=== PATIENT | female | born 1975 | race African-American/Black ===

== ENCOUNTER 2024-01-24 05:51 | Day surgery (SDC) | payer OTHER, SELFPAY ==
[2024-01-13 07:39] VITALS: BMI 27.3
[2024-01-13 09:36] LABS: % Basophils 1.1 % (0-2); % Eosinophils 2.9 % (0-6); % Immature Granulocytes 0.2 % (0-0.5); % Lymphocytes 25.7 % (20.5-51.1); % Monocytes 11.6 % (1.7-9.3); % Neutrophils 58.5 % (42.2-75.2); Absolute Basophils 0.1 10^3/uL (0-0.2); Absolute Eosinophils 0.1 10^3/uL (0-0.7); Absolute Lymphocytes 1.2 10^3/uL (1.2-3.4); Absolute Monocytes 0.5 10^3/uL (0.1-0.6); Absolute Neutrophils 2.7 10^3/uL (1.4-6.5); Hematocrit 39.2 % (37.0-47.0); Hemoglobin 12.4 g/dL (12.0-16.0); Mean Corp Hgb Conc. 31.6 g/dL (33.0-37.0); Mean Corpuscular Hgb 26.2 pg (27.0-31.0); Mean Corpuscular Volume 82.9 fL (81.0-99.0); Mean Platelet Volume 11.3 fL (7.4-10.4); Nucleated Red Blood Cells % 0 %; Platelet Count 270 10^3/uL (130-400); Red Blood Cell Count 4.73 10^6/uL (4.20-5.40); Red Cell Dist. Width 14.4 % (11.5-14.5); White Blood Cell Count 4.6 10^3/uL (4.8-10.8)
[2024-01-13 10:10] LABS: Blood Urea Nitrogen 18 mg/dl (7-17); Calcium 10.1 mg/dl (8.4-10.2); Carbon Dioxide 22 mmol/L (22-30); Chloride 105 mmol/L (98-107); Estimated Creatinine Clearance 75 ml/min; Glucose 94 mg/dl (70-99); Potassium 4.3 mmol/L (3.5-5.1); Sodium 139 mmol/L (135-145); eGFR > 60.00
[2024-01-13 10:26] LABS: Beta HCG Quantitative < 2.39 mIU/ml
[2024-01-24] VITALS (10 sets, daily range): BP systolic 102–129; BP diastolic 71–84; BMI 27.3
[2024-01-24] MEDS: NORMOSOL-R 1000 IV (06:17)
[2024-01-24] MEDS: TYLENOL 1000 MG PO (06:17)
--- NOTE | 2024-01-24 08:34 | W.SUR.PREOP ---
Pre-Operative Surgical Note
-
I have examined this patient prior to the performance of the scheduled procedure.
The patient's condition is unchanged from the time of the current History and
Physical and the patient is able to undergo the scheduled procedure.
Jeannie was seen by me preoperatively. No changes to H&P.
--- NOTE | 2024-01-24 08:34 | W.IMMPOSTOP ---
Surgical Immed Post Op Note
-
Primary Surgeon: Teresa Carey DO
Assisting Surgeon: none
Pre-op Diagnosis: Menorrhagia, abnormal uterine bleeding
Post-op Diagnosis: same, endometrial polyp, submucosal fibroid
Procedure Performed: Hysterocopy D&C myosure resection of polyp and submucosal fibroid
Anesthesia Type: general Dr. Gleason
Specimen / Cultures: 1. endocervical curettings 2. endometrial curettings; fragments resected polyp and fibroid in sock
Estimated Blood Loss: 2 ml
Complications: none
Fluid deficit: 60m NSS
Operative Findings: Endometrial polyp noted, submucosal fibroid noted. Bilateral tubal ostia seen.
Stable to recovery.
SPonge counts correct times 2.
== END 2024-01-24 09:40 | disposition home or self-care (01) ==
LOC: SDS 05:51
PROVIDERS: ATTENDING PHYSICIAN Obstetrics & Gynecology; FAMILY PHYSICIAN Family Medicine
DX: N84.0 Polyp of corpus uteri (principal); N92.0 Excessive and frequent menstruation with regular cycle
CPT/HCPCS: 58558; 88305; 36415; 80048; 84702; 85025

== ENCOUNTER → 2024-04-18 12:53 | Outpatient (REF) | payer OTHER, SELFPAY | LOC: HWRAD 12:53 | PROVIDERS: ATTENDING PHYSICIAN Obstetrics & Gynecology; FAMILY PHYSICIAN Family Medicine | DX: N92.1 Excessive and frequent menstruation with irregular cycle (principal); D25.9 Leiomyoma of uterus, unspecified | CPT/HCPCS: 76830; 76856 ==

== ENCOUNTER → 2024-06-01 07:37 | Outpatient (REF) | payer OTHER, SELFPAY | LOC: WDC 07:37 | PROVIDERS: ATTENDING PHYSICIAN Obstetrics & Gynecology; FAMILY PHYSICIAN Family Medicine | DX: Z12.31 Encounter for screening mammogram for malignant neoplasm of breast (principal) | CPT/HCPCS: 77063; 77067 ==

== ENCOUNTER → 2024-06-08 17:44 | Outpatient (REF) | payer OTHER, SELFPAY | LOC: MRI 17:44 | PROVIDERS: ATTENDING PHYSICIAN Obstetrics & Gynecology; FAMILY PHYSICIAN Family Medicine; PRIMARYCARE PHYSICIAN Family Medicine | DX: N92.1 Excessive and frequent menstruation with irregular cycle (principal); D25.9 Leiomyoma of uterus, unspecified | CPT/HCPCS: 72197; A9575 ==

== ENCOUNTER → 2024-06-22 11:36 | Outpatient (REF) | payer OTHER, SELFPAY | LOC: RADI 11:36 | PROVIDERS: ATTENDING PHYSICIAN Obstetrics & Gynecology; FAMILY PHYSICIAN Family Medicine | DX: D25.9 Leiomyoma of uterus, unspecified (principal) ==

== ENCOUNTER 2024-08-30 07:11 | Day surgery (SDC) | payer OTHER, SELFPAY ==
[2024-08-30] VITALS (11 sets, daily range): BP systolic 78–164; BP diastolic 80–106; BMI 28.2
[2024-08-30 08:12] LABS: Hematocrit 37.4 % (37.0-47.0); Hemoglobin 11.7 g/dL (12.0-16.0); Mean Corp Hgb Conc. 31.3 g/dL (33.0-37.0); Mean Corpuscular Hgb 25.5 pg (27.0-31.0); Mean Corpuscular Volume 81.5 fL (81.0-99.0); Mean Platelet Volume 10.2 fL (7.4-10.4); Platelet Count 297 10^3/uL (130-400); Red Blood Cell Count 4.59 10^6/uL (4.20-5.40); Red Cell Dist. Width 14.4 % (11.5-14.5); White Blood Cell Count 8.1 10^3/uL (4.8-10.8)
[2024-08-30 08:21] LABS: INR 0.95; PT 13.2 Sec (11.4-14.6)
--- NOTE | 2024-08-30 08:29 | PTCARENOTE ---
#16F mendiola inserted using aseptic technique after attempting 14F mendiola was unsuccessful.
[2024-08-30 08:35] LABS: HCG, Urine Qualitative Screen Negative
[2024-08-30] MEDS: ANCEF 10 IV (08:40)
[2024-08-30] MEDS: ZOFRAN 8 MG PO (08:43)
[2024-08-30] MEDS: OXYCONTIN (CONTROLLED RELEASE) 10 MG PO (08:43)
[2024-08-30] MEDS: BENADRYL 25 MG IV (08:44)
[2024-08-30] MEDS: DECADRON 10 MG IV (08:44)
[2024-08-30 08:58] LABS: Blood Urea Nitrogen 13 mg/dl (7-17)
[2024-08-30] MEDS: OFIRMEV 100 IV (11:08)
[2024-08-30] MEDS: NSS 1000 IV ×2 (11:29→22:53)
[2024-08-30] MEDS: ROXICODONE 5 MG PO (12:24)
[2024-08-30] MEDS: ZOFRAN 4 MG IV ×2 (13:37→20:17)
--- NOTE | 2024-08-30 14:13 | PTCARENOTE ---
1340 Vomited after taking a few sips of water. Zofran 4 mg IV given as ordered for nausea.
--- NOTE | 2024-08-30 14:15 | PTCARENOTE ---
1345[place]iger text sent to Dr. Crum .Pt wants to get OOB to [facility] for BM. OK with MD. Will continue to do right femoral checks
--- NOTE | 2024-08-30 14:46 | CM ---
Met with pt and her at bedside
Pt reports she lives with her in a 2 story home
Independent with ADL's, employed
DME - none
SNF/HH - denies past hx
Has ride at discharge
PCP - Damon Mcmillan
Pharm - [facility]
Plan - anticipate home no needs when medically ready
[2024-08-30] MEDS: TORADOL 15 MG IV ×3 (15:25→21:42)
--- NOTE | 2024-08-30 16:33 | PTCARENOTE ---
Continues to vomit with no relief from zofran. rates pain 7-8. no relief from ordered pain meds. [place] text sent to Dr. Crum
--- NOTE | 2024-08-30 16:52 | PTCARENOTE ---
Dr. Crum here to see pt.
[2024-08-30] MEDS: COMPAZINE 10 MG IV (17:12)
[2024-08-30] MEDS: DILAUDID 0.5 MG IV (20:03)
--- NOTE | 2024-08-30 22:41 | PTCARENOTE ---
Dr. Hall notified @ 2043 regarding patients elevated BP, pain and nausea. Dilaudid given for pain, zofran given for nausea, patient sleeping and BP improved.
[2024-08-31] MEDS: DILAUDID 0.5 MG IV (02:20)
[2024-08-31] MEDS: TORADOL 15 MG IV ×2 (03:40→08:26)
[2024-08-31 04:00] VITALS: BP 123/78
--- NOTE | 2024-08-31 06:21 | PTCARENOTE ---
mendiola catheter d/c @ 0605 per orders. Patient tolerated well. Time and amount explained to patient.
--- NOTE | 2024-08-31 08:40 | W.PN.GENERIC ---
Assessment / Plan
-
49 yo female with Uterine Fibroids s/p UAE yesterday
Nausea has improved-she is tolerating POs
Cramping is improved- continue Toradol
Plan to D/C today
I spent greater than 30 minutes reviewing the chart, evaluating and examining the patient, reviewing laboratory studies all relevant imaging as well as documenting, counseling the patient and revieing discharge instructions and expected outcomes.
Physician Progress Note
Subjective
This is a 49-year-old female with no significant past medical history who has been experiencing menometrorrhagia due to her numerous uterine fibroids. She previously underwent hysteroscopy dilatation and curettage with resection of fibroid and
polypectomy with only minimal relief of symptoms. She reports some abdominal bloating and cramping. She occasionally has urinary urgency and frequency as well as constipation. She underwent UAE yesterday. She still has some cramping but reports the
nausea has improved. She has voided spontaneously and is tolerating POs.
She denies fever, chills, abdominal pain, flank pain, palpitations, shortness of breath, dizziness, lightheadedness or syncope.
PMH: Uterine fibroids.
PSH: Hysteroscopy dilatation and curettage with resection of fibroid a polypectomy-01/24/2024.
Social History: Patient denies tobacco use. She socially drinks alcohol
Allergies: NKDA.
Current Medications: Zyrtec 10 mg, vitamin D3 50 mcg, calcium 500 mg.
Objective
Vital Signs
Temp Pulse Resp BP Pulse Ox
99.1 F 86 16 123/78 100
08/31/24 04:00 08/31/24 04:00 08/31/24 04:00 08/31/24 04:00 08/30/24 11:45
Lab Results
08/30/24 07:34
08/30/24 07:34
Physical examination: This is a well-nourished, well-developed 49-year-old female who is awake, alert and oriented in no acute distress. Her color is good. Skin is warm and dry. Her neck is supple. Her heart is regular. Her lungs are clear
throughout. Her abdomen is soft and nontender with bowel sounds present. Right groin drssing is CDI. No hematoma. Palpable pedal pulses.
[2024-08-31 08:42] VITALS: BP 140/91
--- NOTE | 2024-08-31 09:05 | PTCARENOTE ---
Received patient resting comfortable in bed, AA0X3, vss, lungs CTA, HRR, BS+ in all four quad, Iv site to left wrist CDI and IV Fluids infusing per MD order. Bandaid CDI to right groin, neura checks to both LLe wnL. pt OOB to bathroom and voided
650 CYU with small amount of discharge noted. Instructed patient to order breakfast and pt in good spirits at present.
--- NOTE | 2024-08-31 10:52 | CM ---
Pt for discharge today
Has ride home
Plan - home no needs
[2024-08-31 10:59] VITALS: BP 133/84
--- NOTE | 2024-08-31 11:34 | PTCARENOTE ---
Patient discharge paperwork given to patient and patient verbalizes understanding. Transport call and presently awaiting transport.
== END 2024-08-31 13:55 | disposition home or self-care (01) ==
LOC: PACU 07:11
PROVIDERS: ATTENDING PHYSICIAN Radiology Diagnostic Radiology; FAMILY PHYSICIAN Family Medicine; REFERRING PHYSICIAN Physician Assistant
DX: D25.9 Leiomyoma of uterus, unspecified (principal); N92.0 Excessive and frequent menstruation with regular cycle
CPT/HCPCS: 37243; 36246; 36415; 75726; 76937; 81025; 82565; 84520; 85027; 85610; 99152; 99153; C1769; C1887

== ENCOUNTER 2025-05-18 18:25 | Emergency (ER) | payer OTHER, SELFPAY ==
[2025-05-18 18:25] VITALS: BP 165/98
[2025-05-18 20:07] VITALS: BP 152/90
--- NOTE | 2025-05-18 20:09 | ED.GENMED ---
ED Provider Triage
<Quincy Phelps MD, Resident - Last Filed: 05/19/25 00:37>
-
Patient seen by provider in Triage?: Seen in Triage
History of Present Illness
<Quincy Phelps MD, Resident - Last Filed: 05/19/25 00:37>
General
Chief Complaint: Facial Problem
Source: patient
Exam Limitations: none
Time Seen by Provider: 05/18/25 20:09
History of Present Illness
History of Present Illness:
41-year-old female who presents for left eye droop since today at 2 PM. She also complains of a left-sided headache as well for the past 4 days. No tearing or pain behind the eye on the affected side, visual changes. No nausea, vomiting,
photophobia, confusion. No trouble walking, numbness, slurred speech, weakness. Negative history for hypertension, diabetes, migraines.
Past History
<Quincy Phelps MD, Resident - Last Filed: 05/19/25 00:37>
Past History
ED Past Medical History: None
Social History
Tobacco: Non-smoker
Alcohol: Occasional
Living: with family
Family History
Family History: Negative Diabetes, Hypertension or CAD
Review of Systems
<Quincy Phelps MD, Resident - Last Filed: 05/19/25 00:37>
Review of Systems
All Other Systems: ROS reviewed and negative except as documented in HPI and ROS
Phy Exam
<Quincy Phelps MD, Resident - Last Filed: 05/19/25 00:37>
General Physical Exam
General Presentation: well appearing and no apparent distress
General age: appears stated age
General Skin: warm and dry
General Habitus: normal
General Mental: alert
Eye Exam
Eye Exam: PERRL, EOMI, visual novoa normal and other (drooping of the left eye lid )
Cardiovascular Exam
Cardiovascular Exam: regular rate/rhythm and no edema
Pulmonary Exam
Pulmonary Exam: lungs clear and no respiratory distress
Gastrointestinal Exam
Gastrointestinal Exam: normal bowel sounds, non tender, soft and non distended
Neurological Exam
Neurological Exam: alert, oriented x3, CN II-XII intact, no motor deficits, normal reflexs, no sensory deficits and speech normal
Musculoskeletal Exam
Musculoskeletal Exam: full ROM
Psychiatric Exam
Psychiatric Exam: normal mood/affect
Course
<Quincy Phelps MD, Resident - Last Filed: 05/19/25 00:37>
Orders/Labs/Results
Orders:
Orders
05/18/25 18:32
CT Head W/o Iv Contrast Urgent
Comment:
Reason For Exam: L eyelid drooping, headache since
05/18/25 20:21
CMP [Comprehensive Metabolic Panel] Urgent
Complete Blood Count/With Diff Urgent
05/18/25 21:20
0.9% Sodium Chloride 1000 ml [Nss] 1,000 ml IV BOLUS
Ketorolac [Toradol] 15 mg IV NOW STA
05/18/25 21:35
CT Head & Neck Angio W/wo IV Urgent
Comment:
Reason For Exam: drooping left eyelid
05/19/25 00:21
Dexamethasone Sod Phosphate [Decadron] 10 mg IV NOW STA
Abnormal Lab Results
05/18/25
20:21
MPV 11.1 H fL
(7.4-10.4)
AST 49 H U/L
(14-36)
ALT 40 H U/L
(0-35)
Total Protein 8.4 H g/dl
(6.3-8.2)
05/18/25 20:21
05/18/25 20:21
Vital Signs
Initial and Last Documented VS:
Initial Vital Signs
Temp Pulse Resp BP Pulse Ox
99.3 F 83 16 165/98 100
05/18/25 18:25 05/18/25 18:25 05/18/25 18:25 05/18/25 18:25 05/18/25 18:25
Last Documented Vital Signs
Temp Pulse Resp BP Pulse Ox
99.3 F 68 15 141/93 99
05/18/25 18:25 05/18/25 21:45 05/18/25 21:45 05/18/25 21:00 05/18/25 21:45
<Malissa Thorpe DO - Last Filed: 05/19/25 00:23>
Orders/Labs/Results
Orders:
Orders
05/18/25 18:32
CT Head W/o Iv Contrast Urgent
Comment:
Reason For Exam: L eyelid drooping, headache since
05/18/25 20:21
CMP [Comprehensive Metabolic Panel] Urgent
Complete Blood Count/With Diff Urgent
05/18/25 21:20
0.9% Sodium Chloride 1000 ml [Nss] 1,000 ml IV BOLUS
Ketorolac [Toradol] 15 mg IV NOW STA
05/18/25 21:35
CT Head & Neck Angio W/wo IV Urgent
Comment:
Reason For Exam: drooping left eyelid
05/19/25 00:21
Dexamethasone Sod Phosphate [Decadron] 10 mg IV NOW STA
Abnormal Lab Results
05/18/25
20:21
MPV 11.1 H fL
(7.4-10.4)
AST 49 H U/L
(14-36)
ALT 40 H U/L
(0-35)
Total Protein 8.4 H g/dl
(6.3-8.2)
05/18/25 20:21
05/18/25 20:21
Vital Signs
Initial and Last Documented VS:
Initial Vital Signs
Temp Pulse Resp BP Pulse Ox
99.3 F 83 16 165/98 100
05/18/25 18:25 05/18/25 18:25 05/18/25 18:25 05/18/25 18:25 05/18/25 18:25
Last Documented Vital Signs
Temp Pulse Resp BP Pulse Ox
99.3 F 68 15 141/93 99
05/18/25 18:25 05/18/25 21:45 05/18/25 21:45 05/18/25 21:00 05/18/25 21:45
<Quincy Phelps MD, Resident - Last Filed: 05/19/25 00:37>
MDM/Problems Addressed
Differential Diagnosis Includes:
migraine with residual effects, horners syndrome, stroke, myasthenia gravis, cluster headache
MDM/Problems Addressed:
- CBC unremarkable
- CMP unremarkable
- CT head showed no abnormalities
- CTA negative for dissection/ aneurysm
- Patient will be discharged home with instructions to follow up with PCP. Will be discharged on Decadron.
<Quincy Phelps MD, Resident - Last Filed: 05/19/25 00:37>
*Pulse Oximetry
SaO2: 100
Oxygen Mode of Delivery: Room air
Patient hypoxic: no
*Critical Care Note
Total Time (30-74mins, 75-104mins- exclusive of procedures): Not Applicable
ED Attending Note
<Quincy Phelps MD, Resident - Last Filed: 05/19/25 00:37>
-
Portions of this chart may have been created with voice recognition software.� Occasional wrong word or��sound alike� substitutions may have occurred due to the inherent limitations of voice recognition software.
<Malissa Thorpe DO - Last Filed: 05/19/25 00:23>
ED Attending Note
Patient seen and examined by attending physician: Yes
I performed the substantive portion of visit, reviewed & personally made and approve the management plan that is documented in note by myself or YAZAN.: Yes
I performed a history and physical exam of patient and discussed management with resident, I reviewed resident's note and agree with documented findings and plan of care.: Yes
ED Attending Note:
49-year-old female with history of migraines presenting to the emergency department with concern of left eye drooping. Patient reports that she noticed the symptoms around 2 PM. She has been having a headache since , 3 days ago. Notes the
headache feels like it is behind her left eye. Denies any visual symptoms or tearing to her eye. Denies weakness or numbness to her extremities. Does report that she has had ocular migraines in the past, however never with drooping to the eyelid.
Does note that she is presently having a headache. Denies fever or neck pain. Denies any fall or trauma. Denies additional acute medical complaints
Vitals on arrival significant for mild hypertension. On exam, patient is resting comfortably, no acute distress. Mild isolated drooping to the left eyelid with extraocular movements intact pupils equal and reactive. Patient is able to close her
eyes without difficulty with no additional facial paralysis. No additional focal neurologic deficits with intact strength and sensation. Ultimately suspect complex migraine, ocular migraine. Symptoms seem less consistent with a Mendiola's palsy.
Lower suspicion for acute CVA. CT brain obtained prior to my assessment, ordered by nursing protocol. Negative for acute process. In discussion with neurology, recommending CTA. Will treat patient's migraine and reassess for improvement
00:20 - CT angio was negative. On reassessment, patient feels that her eye drooping is slightly improved and headache is slightly improved. Drooping is still present, however does feel that it is overall improved. Continue to suspect complex
migraine. Patient reports that she still has a slight headache. Will administer Decadron for headache relief and to prevent rebound. Otherwise feel stable for discharge, however advised outpatient PCP follow-up for potential MRI imaging if
symptoms are persisting. Return precautions discussed and patient verbalized understanding
Discharge Plan
Departure
Patient Disposition: Home (Routine Discharge)
Date of Disposition: 05/19/25
Time of Disposition: 00:21
Patient with high blood pressure during this ER visit?: Yes
Condition: Fair
Discharge Problem:
Ptosis of eyelid, left, Headache
Instructions: Headache, Adult (DC), BLOOD PRESSURE
Prescriptions:
No Action
cetirizine 10 MG tablet
10 mg PO DAILY
ascorbic acid (vitamin C) [Vitamin C] 500 mg Tablet
1,500 g PO DAILY
ibuprofen 200 mg Tablet
600 mg PO Q6H PRN (Reason: pain)
multivitamin Capsule
1 cap PO DAILY
cholecalciferol (vitamin D3) [Vitamin D3] 50 mcg (2,000 unit) Capsule
50 mcg PO .3X / WEEK
oxycodone-acetaminophen [Percocet] 5-325 mg Tablet
1 tab PO Q6HPRN PRN (Reason: PAIN) Qty: 12 0RF
Rx Instructions:
Attending physician Francis Hall
ondansetron 4 mg Tablet,Disintegrating
4 mg PO Q6H Qty: 14 0RF
ketorolac 10 mg tablet
10 mg PO Q6H Qty: 14 0RF
Rx Instructions:
maximum total duration of 5 days from all oral, intranasal, or parenteral formulations
Referrals:
Damon Mcmillan MD [Family Provider, Family Practice]
Activity Restrictions/Additional Instructions:
You were seen for left sided headache associated with drooping of the left eyelid. No focal neurological deficits. Labs were unremarkable, CT head without contrast negative for hemorrhage and infarct, CTA negative for any stenosis. Please follow
with your pcp in less than 7 days for further evaluation. Will discharge on Decadron take as prescribed. Please return to ER if any numbness, weakness, visual changes, severe headache, facial droop, slurring of speech, fever, chills, nausea/
vomiting, shortness of breath.
Thank you for visiting the Emergency Department at [facility].
1. Please schedule a follow up appointment as directed. Call first thing tomorrow morning to make an appointment.
2. If indicated, please take your medications as instructed and indicated on discharge paperwork.
3. If any of your symptoms do not improve, or persist, or become more severe within 6-12 hours, please return to the emergency department for further care.
4. Please return to the emergency department if you develop a headache, neck pain/stiffness, fever greater than 100.4F, chest pain, shortness of breath, persistent nausea, vomiting, slurred speech, difficulty walking, numbness/tingling, weakness,
signs of infection or any other symptoms that are worrisome to you.
Please call [phone] if you have any questions.
Interventions
Interventions:
*Risk Screen - Suicide Last Done: 05/18/25 20:11
*General Assessment Last Done: 05/18/25 20:11
*Neglect/Abuse Screening Last Done: 05/18/25 20:11
*ED- Fall Risk Assessment Last Done: 05/18/25 20:11
*ED COVID-19 Vaccine History Last Done: 05/18/25 20:11
*ED Influenza Vaccine History Last Done: 05/18/25 20:11
ED- Neurological Assessment Last Done: 05/18/25 20:12
ED-Skin Assessment Last Done: 05/18/25 20:12
Discharge Date and Time
Print Language: GERMAN
[2025-05-18 20:10] VITALS: BMI 28.3
[2025-05-18 21:00] VITALS: BP 141/93
[2025-05-18 21:25] LABS: Hematocrit 42.8 % (37.0-47.0); Hemoglobin 14.5 g/dL (12.0-16.0); Mean Corp Hgb Conc. 33.9 g/dL (33.0-37.0); Mean Corpuscular Volume 87.3 fL (81.0-99.0); Nucleated Red Blood Cells % 0 %; Platelet Count 299 10^3/uL (130-400); Red Cell Dist. Width 12.8 % (11.5-14.5)
[2025-05-18] MEDS: NSS 1000 IV (21:30)
[2025-05-18] MEDS: TORADOL 15 MG IV (21:30)
[2025-05-18 21:44] LABS: ALT (SGPT) 40 U/L (0-35); AST (SGOT) 49 U/L (14-36); Albumin 4.8 g/dl (3.5-5.0); Alkaline Phosphatase 66 U/L (38-126); Blood Urea Nitrogen 12 mg/dl (7-17); Calcium 9.7 mg/dl (8.4-10.2); Carbon Dioxide 26 mmol/L (22-30); Chloride 105 mmol/L (98-107); Estimated Creatinine Clearance 94 ml/min; Glucose 87 mg/dl (70-99); Potassium 4.6 mmol/L (3.5-5.1); Sodium 139 mmol/L (135-145); Total Protein 8.4 g/dl (6.3-8.2); eGFR > 60.00
[2025-05-19] MEDS: DECADRON 10 MG IV (00:29)
--- NOTE | 2025-05-19 15:29 | ED.GENMED ---
History of Present Illness
General
Chief Complaint: Facial Problem
Time Seen by Provider: 05/18/25 20:09
Past History
Past History
ED Past Medical History: None
Social History
Tobacco: Non-smoker
Alcohol: Occasional
Living: with family
Family History
Family History: Negative Diabetes, Hypertension or CAD
Course
Orders/Labs/Results
Orders:
Orders
05/18/25 18:32
CT Head W/o Iv Contrast Urgent
Comment:
Reason For Exam: L eyelid drooping, headache since
05/18/25 20:21
CMP [Comprehensive Metabolic Panel] Urgent
Complete Blood Count/With Diff Urgent
05/18/25 21:20
0.9% Sodium Chloride 1000 ml [Nss] 1,000 ml IV BOLUS
Ketorolac [Toradol] 15 mg IV NOW STA
05/18/25 21:35
CT Head & Neck Angio W/wo IV Urgent
Comment:
Reason For Exam: drooping left eyelid
05/19/25 00:21
Dexamethasone Sod Phosphate [Decadron] 10 mg IV NOW STA
Abnormal Lab Results
05/18/25
20:21
MPV 11.1 H fL
(7.4-10.4)
AST 49 H U/L
(14-36)
ALT 40 H U/L
(0-35)
Total Protein 8.4 H g/dl
(6.3-8.2)
05/18/25 20:21
05/18/25 20:21
Vital Signs
Initial and Last Documented VS:
Initial Vital Signs
Temp Pulse Resp BP Pulse Ox
99.3 F 83 16 165/98 100
05/18/25 18:25 05/18/25 18:25 05/18/25 18:25 05/18/25 18:25 05/18/25 18:25
Last Documented Vital Signs
Temp Pulse Resp BP Pulse Ox
99.3 F 68 15 141/93 99
05/18/25 18:25 05/18/25 21:45 05/18/25 21:45 05/18/25 21:00 05/18/25 21:45
*Pulse Oximetry
SaO2: 99
Oxygen Mode of Delivery: Room air
ED Attending Note
-
Portions of this chart may have been created with voice recognition software.� Occasional wrong word or��sound alike� substitutions may have occurred due to the inherent limitations of voice recognition software.
Discharge Plan
Departure
Patient Disposition: Home (Routine Discharge)
Date of Disposition: 05/19/25
Time of Disposition: 00:21
Patient with high blood pressure during this ER visit?: Yes
Condition: Fair
Discharge Problem:
Ptosis of eyelid, left, Headache
Instructions: Headache, Adult (DC), BLOOD PRESSURE
Prescriptions:
No Action
cetirizine 10 MG tablet
10 mg PO DAILY
ascorbic acid (vitamin C) [Vitamin C] 500 mg Tablet
1,500 g PO DAILY
ibuprofen 200 mg Tablet
600 mg PO Q6H PRN (Reason: pain)
multivitamin Capsule
1 cap PO DAILY
cholecalciferol (vitamin D3) [Vitamin D3] 50 mcg (2,000 unit) Capsule
50 mcg PO .3X / WEEK
oxycodone-acetaminophen [Percocet] 5-325 mg Tablet
1 tab PO Q6HPRN PRN (Reason: PAIN) Qty: 12 0RF
Rx Instructions:
Attending physician Francis Hall
ondansetron 4 mg Tablet,Disintegrating
4 mg PO Q6H Qty: 14 0RF
ketorolac 10 mg tablet
10 mg PO Q6H Qty: 14 0RF
Rx Instructions:
maximum total duration of 5 days from all oral, intranasal, or parenteral formulations
aspirin 81 mg tablet
81 mg PO DAILY Qty: 30 0RF
clopidogrel [Plavix] 75 mg tablet
75 mg PO DAILY Qty: 30 0RF
Referrals:
Damon Mcmillan MD [Family Provider, [facility]]
Activity Restrictions/Additional Instructions:
You were seen for left sided headache associated with drooping of the left eyelid. No focal neurological deficits. Labs were unremarkable, CT head without contrast negative for hemorrhage and infarct, CTA negative for any stenosis. Please follow
with your pcp in less than 7 days for further evaluation. Will discharge on Decadron take as prescribed. Please return to ER if any numbness, weakness, visual changes, severe headache, facial droop, slurring of speech, fever, chills, nausea/
vomiting, shortness of breath.
Thank you for visiting the Emergency Department at [facility].
1. Please schedule a follow up appointment as directed. Call first thing tomorrow morning to make an appointment.
2. If indicated, please take your medications as instructed and indicated on discharge paperwork.
3. If any of your symptoms do not improve, or persist, or become more severe within 6-12 hours, please return to the emergency department for further care.
4. Please return to the emergency department if you develop a headache, neck pain/stiffness, fever greater than 100.4F, chest pain, shortness of breath, persistent nausea, vomiting, slurred speech, difficulty walking, numbness/tingling, weakness,
signs of infection or any other symptoms that are worrisome to you.
Please call [phone] if you have any questions.
Interventions
Interventions:
*Risk Screen - Suicide Last Done: 05/18/25 20:11
*General Assessment Last Done: 05/18/25 20:11
*Neglect/Abuse Screening Last Done: 05/18/25 20:11
*ED- Fall Risk Assessment Last Done: 05/18/25 20:11
*ED COVID-19 Vaccine History Last Done: 05/18/25 20:11
*ED Influenza Vaccine History Last Done: 05/18/25 20:11
*Nursing Disposition Last Done: 05/19/25 00:41
ED- Neurological Assessment Last Done: 05/18/25 20:12
ED-Skin Assessment Last Done: 05/18/25 20:12
Discharge Date and Time
Discharge Date/Time: 05/19/25 00:44
Print Language: YEMENI
== END 2025-05-19 00:44 | disposition home or self-care (01) ==
LOC: EMR 18:25
PROVIDERS: EMERGENCY PHYSICIAN Student in an Organized Health Care Education/Training Program; FAMILY PHYSICIAN Family Medicine
DX: H02.402 Unspecified ptosis of left eyelid (principal); R51.9 Headache, unspecified
CPT/HCPCS: 96374; 96375; 96361; 99284; 70450; 70496; 70498; 80053; 85025; Q9967

== ENCOUNTER 2025-05-19 09:57 | Emergency (ER) | payer OTHER, SELFPAY ==
[2025-05-19 10:02] VITALS: BP 155/93
--- NOTE | 2025-05-19 11:18 | ED.GENMED ---
History of Present Illness
<Leanna Jimenez PA-C - Last Filed: 05/19/25 16:55>
General
Chief Complaint: Headache
Source: patient
Exam Limitations: none
Time Seen by Provider: 05/19/25 11:02
History of Present Illness
History of Present Illness:
49yoF with a history of menopause on HRT presenting for evaluation of a headache. Symptoms initially began 3 days ago. She saw a 'prism' in her right visual field which resolved and then she subsequently developed a left temporal and periorbital
headache. She started to notice drooping of her left eyelid yesterday so decided to come to the emergency department. While in the ED, patient underwent CT head and CTA head/neck. [facility] radiology interpreted the CTA overnight as normal. Our
radiologist looked at the CTA this morning and saw 'Short segment abnormality of the left ICA at the carotid foramen opening to the carotid canal on the inferior surface of the petrous part of the temporal bone. 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
dissection with high-grade stenosis.' An MRA was recommended and patient was asked to return to the ED for evaluation. Patient currently has a 4/10 L temporal headache which she states is mild and 'more of a background discomfort.' She feels both
of her eyes are blurry due to a new glasses prescription. She denies any eye pain, diplopia, visual field cut, nausea, vomiting, dizziness, balance issues.
Past History
<Leanna Jimenez PA-C - Last Filed: 05/19/25 16:55>
Past History
ED Past Medical History: None
Social History
Tobacco: Non-smoker
Alcohol: Occasional
Living: with family
Family History
Family History: Negative Diabetes, Hypertension or CAD
Phy Exam
<Leanna Jimenez PA-C - Last Filed: 05/19/25 16:55>
General Physical Exam
General Presentation: well appearing and no apparent distress
General age: appears stated age
General Skin: warm and dry
General Habitus: normal
General Mental: alert
ENT Exam
ENT Exam: normocephalic
Additional ENT: No carotid bruit
Eye Exam
Eye Exam: PERRL, EOMI, conjunctiva normal, visual novoa normal and other (Mild ptosis of L eyelid. PERRL. EOMs intact. Visual novoa intact. )
Pulmonary Exam
Pulmonary Exam: no respiratory distress
Neurological Exam
Neurological Exam: alert, no motor deficits, no sensory deficits, speech normal and other (Mild ptosis of L eyelid. No other facial asymmetry present. Able to elevate eyebrow. PERRL. EOMs intact. 5/5 strength in all extremities. Normal finger to
nose and heel to [place]tega bilaterally. )
[place] Coma Scale
Eye Opening: Spontaneous
Verbal Response: Oriented
Motor Response: Obeys Commands
GCS Total Score: 15
Skin Exam
Skin Exam: normal color and warm/dry
Psychiatric Exam
Psychiatric Exam: normal mood/affect
Course
[place];Leanna Jimenez PA-C - Last Filed: 05/19/25 16:55>
Orders/Labs/Results
Orders:
Orders
05/19/25 10:08
Neck With & W/O Contrast MRA [MA Neck With & W/o Contrast] Urgent
Comment:
Reason For Exam: L ptosis abnormal CTA
Recent pill cam endoscopy?: No
05/19/25 11:19
Ketorolac [Toradol] 15 mg IV NOW STA
05/19/25 11:39
0.9% Sodium Chloride 1000 ml [Nss] 1,000 ml IV BOLUS
Diphenhydramine [Benadryl] 25 mg IV NOW STA
Magnesium Sulfate 2 Gram/50 ml [Magnesium Sulfate] 2 gram in 50 ml IV NOW
Metoclopramide [Reglan] 10 mg IV NOW STA
05/19/25 11:55
Basic Metabolic Panel Urgent
Complete Blood Count/With Diff Urgent
05/19/25 15:21
Aspirin Chewable [Low Strength Aspirin] 324 mg PO NOW STA
Clopidogrel Bisulfate [Plavix] 300 mg PO NOW STA
Abnormal Lab Results
05/19/25
11:55
Absolute Neuts (auto) 7.4 H 10^3/uL
(1.4-6.5)
Absolute Lymphs (auto) 0.5 L 10^3/uL
(1.2-3.4)
Neutrophils % 90.1 H %
(42.2-75.2)
Lymphocytes % 6.2 L %
(20.5-51.1)
Chloride 108 H mmol/L
(98-107)
Glucose 137 H mg/dl
(70-99)
05/19/25 11:55
05/19/25 11:55
Vital Signs
Initial and Last Documented VS:
Initial Vital Signs
Temp Pulse Resp BP Pulse Ox
98.0 F 93 16 155/93 98
05/19/25 10:02 05/19/25 10:02 05/19/25 10:02 05/19/25 10:02 05/19/25 10:02
Last Documented Vital Signs
Temp Pulse Resp BP Pulse Ox
98.0 F 70 18 130/68 99
05/19/25 10:02 05/19/25 16:04 05/19/25 16:04 05/19/25 16:04 05/19/25 16:04
<Cristian Amaya, DO - Last Filed: 05/19/25 14:24>
Orders/Labs/Results
Orders:
Orders
05/19/25 10:08
Neck With & W/O Contrast MRA [MA Neck With & W/o Contrast] Urgent
Comment:
Reason For Exam: L ptosis abnormal CTA
Recent pill cam endoscopy?: No
05/19/25 11:19
Ketorolac [Toradol] 15 mg IV NOW STA
05/19/25 11:39
0.9% Sodium Chloride 1000 ml [Nss] 1,000 ml IV BOLUS
Diphenhydramine [Benadryl] 25 mg IV NOW STA
Magnesium Sulfate 2 Gram/50 ml [Magnesium Sulfate] 2 gram in 50 ml IV NOW
Metoclopramide [Reglan] 10 mg IV NOW STA
05/19/25 11:55
Basic Metabolic Panel Urgent
Complete Blood Count/With Diff Urgent
05/19/25 15:21
Aspirin Chewable [Low Strength Aspirin] 324 mg PO NOW STA
Clopidogrel Bisulfate [Plavix] 300 mg PO NOW STA
Abnormal Lab Results
05/19/25
11:55
Absolute Neuts (auto) 7.4 H 10^3/uL
(1.4-6.5)
Absolute Lymphs (auto) 0.5 L 10^3/uL
(1.2-3.4)
Neutrophils % 90.1 H %
(42.2-75.2)
Lymphocytes % 6.2 L %
(20.5-51.1)
Chloride 108 H mmol/L
(98-107)
Glucose 137 H mg/dl
(70-99)
05/19/25 11:55
05/19/25 11:55
Vital Signs
Initial and Last Documented VS:
Initial Vital Signs
Temp Pulse Resp BP Pulse Ox
98.0 F 93 16 155/93 98
05/19/25 10:02 05/19/25 10:02 05/19/25 10:02 05/19/25 10:02 05/19/25 10:02
Last Documented Vital Signs
Temp Pulse Resp BP Pulse Ox
98.0 F 70 18 130/68 99
05/19/25 10:02 05/19/25 16:04 05/19/25 16:04 05/19/25 16:04 05/19/25 16:04
<Leanna Jimenez PA-C - Last Filed: 05/19/25 16:55>
MDM/Problems Addressed
Differential Diagnosis Includes:
49yoF seen in the ED last night for L temporal headache and drooping of L eyelid. [facility] initially interpreted CTA as normal. Our radiologist saw a possible localized thrombosed dissection with high grade stenosis. She is returning for
MRA. No new symptoms today. Continues to have a 4/10 headache. Mild ptosis of L eyelid noted on exam. Cranial nerves otherwise intact and pupillary exam is normal. Differential diagnosis includes but is not limited to: carotid dissection, Ana's
syndrome, migraine
Initial ED plan: Obtain IV access and obtain MRA neck w/wo contrast per radiology recommendations. IV migraine cocktail and reassess.
<Leanna Jimenez PA-C - Last Filed: 05/19/25 16:55>
*Pulse Oximetry
SaO2: 98
Oxygen Mode of Delivery: Room air
Patient hypoxic: no
*Critical Care Note
Total Time (30-74mins, 75-104mins- exclusive of procedures): Not Applicable
<Leanna Jimenez PA-C - Last Filed: 05/19/25 16:55>
Update Note
Update Note:
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 I initially discussed this with Dr. Rdz who recommended transfer to tertiary care center for endovascular neurosurgery. I subsequently spoke to Dr. Aceves, tile conduit layer stroke
fellow at [facility], who reviewed images. Per Dr. Aceves, no surgery/stent needed as patient is not having any severe symptoms and dissection is extradural. 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 Dr. Aceves recommends discharging with
[facility] x 3 months with plan for repeat imaging at that time. Patient should return to the ED with any stroke like symptoms including speech disturbance or R sided weakness. Recommendations discussed with patient who is in agreement with plan. She
was given contact information for the [facility] for f/u and was also advised to f/u with her PCP. Aspirin and Plavix load given in ED and prescriptions provided.
ED Attending Note
<Leanna Jimenez PA-C - Last Filed: 05/19/25 16:55>
-
Portions of this chart may have been created with voice recognition software.� Occasional wrong word or��sound alike� substitutions may have occurred due to the inherent limitations of voice recognition software.
<Cristian Amaya DO - Last Filed: 05/19/25 14:24>
ED Attending Note
Patient seen and examined by attending physician: Yes
I performed the substantive portion of visit, reviewed & personally made and approve the management plan that is documented in note by myself or YAZAN.: Yes
ED Attending Note:
I evaluated patient bedside. The patient has some subtle left ptosis on examination. MRI was obtained today and I did discuss with radiology earlier in the day. MRA does suggest a carotid dissection measuring 8 mm in the petrous portion.
Neurosurgery was consulted and we will plan transfer to [facility].
Discharge Plan
Departure
Patient Disposition: Home (Routine Discharge)
Date of Disposition: 05/19/25
Time of Disposition: 14:57
Patient with high blood pressure during this ER visit?: No
Discharge Problem:
Internal carotid artery dissection
Instructions: Headache in adults - ED (DC)
Prescriptions:
New
aspirin 81 mg tablet
81 mg PO DAILY Qty: 30 0RF
clopidogrel [Plavix] 75 mg tablet
75 mg PO DAILY Qty: 30 0RF
No Action
cetirizine 10 MG tablet
10 mg PO DAILY
ascorbic acid (vitamin C) [Vitamin C] 500 mg Tablet
1,500 g PO DAILY
ibuprofen 200 mg Tablet
600 mg PO Q6H PRN (Reason: pain)
multivitamin Capsule
1 cap PO DAILY
cholecalciferol (vitamin D3) [Vitamin D3] 50 mcg (2,000 unit) Capsule
50 mcg PO .3X / WEEK
oxycodone-acetaminophen [Percocet] 5-325 mg Tablet
1 tab PO Q6HPRN PRN (Reason: PAIN) Qty: 12 0RF
Rx Instructions:
Attending physician Francis Hall
ondansetron 4 mg Tablet,Disintegrating
4 mg PO Q6H Qty: 14 0RF
ketorolac 10 mg tablet
10 mg PO Q6H Qty: 14 0RF
Rx Instructions:
maximum total duration of 5 days from all oral, intranasal, or parenteral formulations
Referrals:
Damon Mcmillan MD [Family Provider, [facility]]
Activity Restrictions/Additional Instructions:
Your MRI shows a focal dissection of the left internal carotid artery.
We spoke with [facility] neuro[facility] specialists who do not recommend surgery for this. You are being started on dual-antiplatelet medications (aspirin and Plavix). You should take this for 3 months and have repeat imaging done. Avoid NSAIDs
(ibuprofen, Advil, Aleve) while taking these medications. You may take Tylenol (acetaminophen) as needed for headaches.
Please call tomorrow to schedule a follow-up appointment with [facility] ([phone]) and your family doctor.
Return to the ER with any stroke symptoms including right sided weakness or changes in your speech.
Interventions
Interventions:
*Risk Screen - Suicide Last Done: 05/19/25 10:02
*General Assessment Last Done: 05/19/25 11:13
*Neglect/Abuse Screening Last Done: 05/19/25 10:02
*Nursing Disposition Last Done: 05/19/25 16:05
ED- Neurological Assessment Last Done: 05/19/25 11:13
Discharge Date and Time
Discharge Date/Time: 05/19/25 16:44
Print Language: LAO
[2025-05-19] MEDS: MAGNESIUM SULFATE 50 IV (11:52)
[2025-05-19] MEDS: NSS 1000 IV (11:53)
[2025-05-19] MEDS: REGLAN 10 MG IV (11:53)
[2025-05-19] MEDS: BENADRYL 25 MG IV (11:53)
[2025-05-19 12:12] LABS: Hematocrit 41.3 % (37.0-47.0); Hemoglobin 13.8 g/dL (12.0-16.0); Mean Corp Hgb Conc. 33.4 g/dL (33.0-37.0); Mean Corpuscular Volume 85.9 fL (81.0-99.0); Nucleated Red Blood Cells % 0 %; Platelet Count 264 10^3/uL (130-400); Red Cell Dist. Width 12.6 % (11.5-14.5)
[2025-05-19 12:28] LABS: Blood Urea Nitrogen 9 mg/dl (7-17); Calcium 9.8 mg/dl (8.4-10.2); Carbon Dioxide 24 mmol/L (22-30); Chloride 108 mmol/L (98-107); Glucose 137 mg/dl (70-99); Potassium 4.9 mmol/L (3.5-5.1); Sodium 137 mmol/L (135-145); eGFR > 60.00
[2025-05-19 14:03] VITALS: BP 136/89
[2025-05-19] MEDS: PLAVIX 300 MG PO (15:50)
[2025-05-19] MEDS: LOW STRENGTH ASPIRIN 324 MG PO (15:50)
[2025-05-19 16:04] VITALS: BP 130/68
== END 2025-05-19 16:44 | disposition home or self-care (01) ==
LOC: EMR 09:57
PROVIDERS: Physician Assistant; EMERGENCY PHYSICIAN Emergency Medicine; FAMILY PHYSICIAN Family Medicine
DX: I77.71 Dissection of carotid artery (principal); Z78.0 Asymptomatic menopausal state; Z79.890 Hormone replacement therapy; H02.402 Unspecified ptosis of left eyelid
CPT/HCPCS: 96365; 96375; 99285; 70549; 80048; 85025; A9585

== ENCOUNTER → 2025-06-05 07:32 | Outpatient (REF) | payer OTHER, SELFPAY | LOC: WDC 07:32 | PROVIDERS: ATTENDING PHYSICIAN Obstetrics & Gynecology; FAMILY PHYSICIAN Family Medicine | DX: Z12.31 Encounter for screening mammogram for malignant neoplasm of breast (principal) | CPT/HCPCS: 77063; 77067 ==